=== PATIENT | female | born 1975 | race Caucasian/White ===

== ENCOUNTER 2016-11-09 23:58 | Inpatient (IN) | payer OTHER ==
[~2016-11-09] VITALS: Ht 165.1 cm; Wt 70.0 kg
[2016-11-10] MEDS ORDERED: ACETAMINOPHEN 500 MG TAB PO STA (00:24)
[2016-11-10] MEDS ORDERED: SOD CHLORIDE 0.9% 1,000 ML IV STA (01:13)
[2016-11-10] MEDS ORDERED: morphine 2 MG INJ IV STA (01:13)
[2016-11-10] MEDS ORDERED: ONDANSETRON 4 MG INJ IV STA (01:13)
[2016-11-10] MEDS ORDERED: HALOPERIDOL 5 MG INJ IM ONE (01:30)
[2016-11-10 01:48] LABS: ADD SCAN DIFF NO
[2016-11-10 01:49] LABS: BASOPHILS % 0.2 % (0.0-2.0); EOSINOPHILS # 0.1 10^3/ul (0.0-0.5); EOSINOPHILS % 0.4 % (0.0-7.0); HEMATOCRIT 48.7 % (37.0-47.0); HEMOGLOBIN 16.6 g/dl (12.0-16.0); LYMPHOCYTES # 2.1 10^3/ul (0.8-2.9); LYMPHOCYTES % 13.9 % (15.0-51.0); MEAN CORPUSCULAR HEMOGLOBIN 34.1 pg (29.0-33.0); MEAN CORPUSCULAR HGB CONC 34.1 g/dl (32.0-37.0); MEAN PLATELET VOLUME 10.1 fl (7.4-10.4); MONOCYTE # 0.6 10^3/ul (0.3-0.9); MONOCYTES % 3.8 % (0.0-11.0); NEUTROPHIL # 12.4 10^3/ul (1.6-7.5); NEUTROPHILS % 80.9 % (39.0-77.0); PLATELET COUNT 336 10^3/UL (140-415); RED BLOOD COUNT 4.87 10^6/ul (4.20-5.40); RED CELL DISTRIBUTION WIDTH 14.4 % (11.5-14.5); WHITE BLOOD COUNT 15.3 10^3/ul (4.8-10.8)
[2016-11-10 01:51] LABS: ADD UMIC YES; URINE BILIRUBIN (Dip) NEGATIVE (NEGATIVE); URINE BLOOD (Dip) 1+ (NEGATIVE); URINE COLOR YELLOW (YELLOW); URINE GLUCOSE (Dip) NEGATIVE (NEGATIVE); URINE KETONES (Dip) TRACE (NEGATIVE); URINE LEUKOCYTE ESTERASE (Dip) NEGATIVE (NEGATIVE); URINE NITRITE (Dip) NEGATIVE (NEGATIVE); URINE TOTAL PROTEIN (Dip) TRACE (NEGATIVE); URINE UROBILINOGEN (Dip) 1.0 E.U./dL (0.1-1.0)
[2016-11-10 02:05] LABS: ALBUMIN 4.1 g/dl (3.3-4.9)
[2016-11-10 02:06] LABS: POTASSIUM 4.1 mmol/L (3.5-5.1)
[2016-11-10 02:08] LABS: ALBUMIN/GLOBULIN RATIO 1.32; BILIRUBIN,INDIRECT 0.3 mg/dl (0-1.1); BILIRUBIN,TOTAL 0.3 mg/dl (0.2-1.3); CREATININE 0.71 mg/dl (0.44-1.00); TOTAL PROTEIN 7.2 g/dl (6.1-8.1)
[2016-11-10 02:09] LABS: CALCIUM 9.5 mg/dl (8.4-10.2)
[2016-11-10 02:12] LABS: BACTERIA,URINE MODERATE; SQUAMOUS EPITHELIAL CELL,UR FEW; URINE RBCS 0-2 /HPF (0)
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
[2016-11-10] MEDS ORDERED: morphine 2 MG INJ IV ONE (02:30)
[2016-11-10] MEDS ORDERED: LIDOCAINE 1% (MDV) 20 ML INJ ONE (04:21)
[2016-11-10] MEDS ORDERED: morphine 4 MG/ML VIAL IV STA ×2 (04:28→04:56)
[2016-11-10 04:40] VITALS: TEMP 97.7
[2016-11-10] MEDS ORDERED: DIPHTH/TET/ACEL PERTUSS (ADULT) 0.5 ML VIAL IM* ONE (05:00)
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
[2016-11-10] MEDS ORDERED: ACETAMINOPHEN 325 MG TAB PO PRN ×2 (06:30→09:30)
[2016-11-10] MEDS ORDERED: ONDANSETRON 4 MG INJ IV PRN ×2 (06:30→09:30)
[2016-11-10 08:30] VITALS: BP 141/84; PULSE 69; RESP 16
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
[2016-11-10] MEDS ORDERED: LORAZEPAM 2 MG INJ IV PRN ×2 (09:30)
[2016-11-10] MEDS ORDERED: NACL 0.9% 3 ML SYG IV SCH (09:30)
[2016-11-10] MEDS ORDERED: OXYCODONE/ACETAMINOPHEN (5/325) TAB PO PRN (09:30)
[2016-11-10] MEDS ORDERED: ALBUTEROL/IPRATROPIUM (NEB) 3 ML AMP HHN PRN (09:30)
[2016-11-10] MEDS ORDERED: MULTIVITAMINS 10 ML, THIAMINE 100 MG, FOLIC ACID 1 MG in SOD CHLORIDE 0.9% 1,000 ML IVPB SCH (11:00)
[2016-11-10 11:13] LABS: MAGNESIUM 1.6 mg/dl (1.7-2.5)
[2016-11-10 11:18] VITALS: Ht 165.1 cm; Wt 70.0 kg
[2016-11-10 12:03] LABS: INR 1.05; PROTIME 13.7 Sec (12.2-14.2); PT RATIO 1.1
[2016-11-10 12:25] LABS: THYROID STIMULATING HORMONE 1.99 MIU/L (0.465-4.680)
[2016-11-10] MEDS: IBUPROFEN 800 MG TAB PO SCH ×3 (12:52→20:21)
[2016-11-10] MEDS: THIAMINE 100 MG TAB PO SCH (12:52)
[2016-11-10] MEDS: LIDOCAINE 5% PATCH TD SCH (12:52)
[2016-11-10] MEDS: CHLORDIAZEPOXIDE 25 MG CAP PO SCH ×2 (12:52→20:21)
[2016-11-10] MEDS: ALBUTEROL 18 GM INHALER INH SCH ×2 (12:53→21:45)
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
[2016-11-10] MEDS: morphine 4 MG/ML VIAL IV PRN (16:28)
[2016-11-10] MEDS: OXYCODONE/ACETAMINOPHEN (5/325) TAB PO PRN (18:27)
[2016-11-10 19:42] VITALS: BP 132/73; RESP 18
[2016-11-11] MEDS: morphine 4 MG/ML VIAL IV PRN (05:23)
[2016-11-11] MEDS: ALBUTEROL 18 GM INHALER INH SCH ×3 (05:23→21:15)
[2016-11-11 06:42] LABS: ADD SCAN DIFF NO
[2016-11-11 06:47] LABS: BASOPHILS % 0.2 % (0.0-2.0); EOSINOPHILS # 0.1 10^3/ul (0.0-0.5); EOSINOPHILS % 1.2 % (0.0-7.0); HEMATOCRIT 42.1 % (37.0-47.0); HEMOGLOBIN 14.2 g/dl (12.0-16.0); LYMPHOCYTES # 2.2 10^3/ul (0.8-2.9); LYMPHOCYTES % 21.1 % (15.0-51.0); MEAN CORPUSCULAR HGB CONC 33.7 g/dl (32.0-37.0); MEAN CORPUSCULAR VOLUME 100.7 fl (82.0-101.0); MEAN PLATELET VOLUME 10.7 fl (7.4-10.4); MONOCYTE # 0.6 10^3/ul (0.3-0.9); MONOCYTES % 5.9 % (0.0-11.0); NEUTROPHIL # 7.5 10^3/ul (1.6-7.5); NEUTROPHILS % 71.2 % (39.0-77.0); PLATELET COUNT 243 10^3/UL (140-415); RED BLOOD COUNT 4.18 10^6/ul (4.20-5.40); RED CELL DISTRIBUTION WIDTH 14.6 % (11.5-14.5); WHITE BLOOD COUNT 10.5 10^3/ul (4.8-10.8)
[2016-11-11 07:04] LABS: ALBUMIN 2.8 g/dl (3.3-4.9)
[2016-11-11 07:05] LABS: POTASSIUM 3.1 mmol/L (3.5-5.1)
[2016-11-11 07:07] LABS: BILIRUBIN,INDIRECT 0.6 mg/dl (0-1.1); BILIRUBIN,TOTAL 0.6 mg/dl (0.2-1.3); CREATININE 0.59 mg/dl (0.44-1.00)
[2016-11-11 07:08] LABS: ALBUMIN/GLOBULIN RATIO 1.03; CALCIUM 8.4 mg/dl (8.4-10.2); MAGNESIUM 1.8 mg/dl (1.7-2.5); PHOSPHORUS 2.8 mg/dl (2.5-4.9); TOTAL PROTEIN 5.5 g/dl (6.1-8.1)
[2016-11-11 07:52] VITALS: BP 137/83; RESP 16
[2016-11-11] MEDS: THIAMINE 100 MG TAB PO SCH (08:43)
[2016-11-11] MEDS: ENOXAPARIN 40 MG/0.4 ML SYG SC SCH (08:43)
[2016-11-11] MEDS: IBUPROFEN 800 MG TAB PO SCH ×3 (08:43→21:14)
[2016-11-11] MEDS: FAMOTIDINE 20 MG TAB PO SCH (08:43)
[2016-11-11] MEDS: LIDOCAINE 5% PATCH TD SCH ×2 (08:43→09:00)
[2016-11-11] MEDS: CHLORDIAZEPOXIDE 25 MG CAP PO SCH ×3 (09:11→21:14)
[2016-11-11] MEDS: HYDROCODONE/APAP (10/325) TAB PO PRN ×2 (11:56→18:16)
[2016-11-11] MEDS ORDERED: POTASSIUM CHLORIDE (SR) 20 MEQ TAB PO STA (13:14)
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
[2016-11-11 20:26] VITALS: BP 134/78; RESP 18
[2016-11-11] MEDS: OXYCODONE/ACETAMINOPHEN (5/325) TAB PO PRN (22:35)
[2016-11-12] MEDS: ALBUTEROL 18 GM INHALER INH SCH ×3 (06:01→22:13)
[2016-11-12 07:43] VITALS: BP 146/96; RESP 20
[2016-11-12] MEDS: IBUPROFEN 800 MG TAB PO SCH ×3 (07:55→20:16)
[2016-11-12] MEDS: THIAMINE 100 MG TAB PO SCH (08:29)
[2016-11-12] MEDS: LIDOCAINE 5% PATCH TD SCH (08:29)
[2016-11-12] MEDS: CHLORDIAZEPOXIDE 25 MG CAP PO SCH ×3 (08:29→20:16)
[2016-11-12] MEDS: ENOXAPARIN 40 MG/0.4 ML SYG SC SCH (08:29)
[2016-11-12] MEDS: morphine 4 MG/ML VIAL IV PRN ×2 (08:47→18:45)
[2016-11-12] MEDS: FAMOTIDINE 20 MG TAB PO SCH (09:00)
[2016-11-12] MEDS: OXYCODONE/ACETAMINOPHEN (5/325) TAB PO PRN ×2 (11:54→22:13)
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
[2016-11-12 20:12] VITALS: BP 148/80; RESP 18
[2016-11-13] MEDS: morphine 4 MG/ML VIAL IV PRN (00:11)
[2016-11-13] MEDS: ALBUTEROL 18 GM INHALER INH SCH ×2 (06:08→14:00)
[2016-11-13] MEDS: OXYCODONE/ACETAMINOPHEN (5/325) TAB PO PRN ×2 (06:48→14:59)
[2016-11-13] MEDS: ENOXAPARIN 40 MG/0.4 ML SYG SC SCH (08:06)
[2016-11-13] MEDS: THIAMINE 100 MG TAB PO SCH (08:06)
[2016-11-13] MEDS: FAMOTIDINE 20 MG TAB PO SCH (08:06)
[2016-11-13] MEDS: CHLORDIAZEPOXIDE 25 MG CAP PO SCH ×2 (08:06→13:00)
[2016-11-13] MEDS: LIDOCAINE 5% PATCH TD SCH (08:07)
[2016-11-13] MEDS: IBUPROFEN 800 MG TAB PO SCH ×2 (08:08→13:00)
[2016-11-13 08:20] VITALS: BP 146/85; RESP 20
[2016-11-13] MEDS ORDERED: HYDR-906 PO (14:29)
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
== END 2016-11-13 16:04 | disposition home or self-care (01) | DRG 184 ==
LOC: E/R 23:58 → PP2 11-10 06:16
PROVIDERS: ADMIT Internal Medicine; ATTEND Internal Medicine
DX: S22.42XA Multiple fractures of ribs, left side, initial encounter for closed fracture (principal); R65.10 Systemic inflammatory response syndrome (SIRS) of non-infectious origin without acute organ dysfunction; X95.8XXA Assault by other firearm discharge, initial encounter; R74.0 Nonspecific elevation of levels of transaminase and lactic acid dehydrogenase [LDH]; M54.89 Other dorsalgia; F41.9 Anxiety disorder, unspecified; F10.129 Alcohol abuse with intoxication, unspecified; F32.9 Major depressive disorder, single episode, unspecified; F17.200 Nicotine dependence, unspecified, uncomplicated; Y90.5 Blood alcohol level of 100-119 mg/100 ml; Y92.9 Unspecified place or not applicable; Z59.0 Homelessness
CPT/HCPCS: 36415; 74176; 80053; 80306; 81001; 81003; 83036; 83690; 83735; 84100; 84443; 84703; 85025; 85610; 90471; 90715; 96372; 96374; 96375; 96376; J1630; J1650; J2270; J2405; J3411; J7030

== ENCOUNTER 2016-11-13 16:32 | Emergency (ER) | payer SELFPAY ==
[~2016-11-13] VITALS: Ht 165.1 cm; Wt 84.0 kg
[~2016-11-13 16:32] MED LIST: HYDR-906 PO
[2016-11-13 16:33] VITALS: Ht 165.1 cm; Wt 84.0 kg
== END 2016-11-13 20:05 | disposition left against medical advice (07) ==
LOC: E/R 16:32
DX: Z53.21 Procedure and treatment not carried out due to patient leaving prior to being seen by health care provider (principal)

== ENCOUNTER 2016-11-17 21:30 | Inpatient (IN) | payer OTHER ==
[~2016-11-17] VITALS: Ht 162.6 cm; Wt 74.0 kg
[2016-11-17] MEDS ORDERED: morphine 4 MG/ML VIAL IV STA (22:23)
[2016-11-17] MEDS ORDERED: ONDANSETRON 4 MG INJ IV STA (22:23)
[2016-11-17] MEDS ORDERED: SOD CHLORIDE 0.9% 1,000 ML IV STA (22:23)
--- NOTE | 2016-11-17 23:33 | RADRPT ---
PROCEDURE: CT Brain without contrast. CLINICAL INDICATION: Headache. Trauma. TECHNIQUE: A multiplanar CT of the brain was performed on a CT scanner utilizing axial imaging fro m the skull base through the vertex without IV contrast. The CTDIvol is 44.63 mGy and the DLP is 63 0.20 mGycm. One or more of the following dose reduction techniques were utilized: Automated exposu re control, adjustment of the mA and/or kV according to patient size, use of iterative reconstructio n technique. COMPARISON: None FINDINGS: Left frontoparietal high density extra-axial collection measuring approximately 8 cm in AP dimension along the left frontoparietal convexity and approximately 7 mm in greatest thickness compatible wit h acute subdural hematoma. There is minimal effacement of the sulci and gyri of the left frontal lo be. No underlying parenchymal contusion or calvarial fracture. The brain parenchyma is otherwise normal attenuation morphology with preservation of nicole white diff erentiation and age appropriate size of the ventricles and subarachnoid spaces. The basal cisterns, posterior fossa contents, brainstem, craniocervical junction, orbits, pituitary axis, paranasal sinuses, mastoid air cells, and calvarium are unremarkable. IMPRESSION: 1. Left frontoparietal acute subdural hematoma measuring 8 cm in length and 7 mm in greatest thickn ess with minimal effacement of the left frontal sulci and gyri without mass effect or evidence of pa renchymal contusion. 2. No evidence of calvarial fracture. 3. No other acute intra cranial abnormality. 4. Results were discussed with Brady Cast 11/17/2016 11:30:44 PM . RPTAT:AAJJ Physician Susie Date Time Electronically viewed and signed by Physician Susie on 11/17/2016 23:32 RACHELLE/
[2016-11-18] VITALS (25 sets, daily range): BP systolic 116–153; BP diastolic 74–96; PULSE 40–82; RESP 15–22; TEMP 98.1; Ht 162.6 cm; Wt 74.0 kg
--- NOTE | 2016-11-18 00:13 | RADRPT ---
PROCEDURE: Portable chest x-ray. CLINICAL INDICATION: Chest pain. TECHNIQUE: Portable AP view of the chest. COMPARISON: None. FINDINGS: There are low lung volumes and mild bibasilar atelectasis. No pulmonary edema or conolidation is id entified. The cardiac silhouette is magnified. No pleural effusion is seen. There is no pneumotho rax. IMPRESSION: 1. No evidence of acute cardiopulmonary disease. RPTAT: HTAR .Dirk Gan MD, MD Date Time Electronically viewed and signed by .Dirk Gan MD, MD on 11/18/2016 00:13 .R/
[2016-11-18 00:15] LABS: ADD SCAN DIFF NO
[2016-11-18 00:20] LABS: BASOPHILS % 0.3 % (0.0-2.0); EOSINOPHILS # 0.1 10^3/ul (0.0-0.5); EOSINOPHILS % 1.1 % (0.0-7.0); HEMATOCRIT 43.9 % (37.0-47.0); LYMPHOCYTES # 1.7 10^3/ul (0.8-2.9); LYMPHOCYTES % 14.1 % (15.0-51.0); MEAN CORPUSCULAR HEMOGLOBIN 34.1 pg (29.0-33.0); MEAN CORPUSCULAR HGB CONC 34.2 g/dl (32.0-37.0); MEAN CORPUSCULAR VOLUME 99.8 fl (82.0-101.0); MEAN PLATELET VOLUME 10.1 fl (7.4-10.4); MONOCYTE # 1.1 10^3/ul (0.3-0.9); MONOCYTES % 8.7 % (0.0-11.0); NEUTROPHIL # 9.2 10^3/ul (1.6-7.5); NEUTROPHILS % 75.1 % (39.0-77.0); PLATELET COUNT 344 10^3/UL (140-415); RED CELL DISTRIBUTION WIDTH 14.2 % (11.5-14.5); WHITE BLOOD COUNT 12.3 10^3/ul (4.8-10.8)
[2016-11-18] MEDS ORDERED: LORAZEPAM 2 MG INJ IV ONE (00:30)
[2016-11-18 00:40] LABS: ALANINE AMINOTRANSFERASE 49 IU/L (13-69); ALBUMIN 3.8 g/dl (3.3-4.9); ALBUMIN/GLOBULIN RATIO 1.15; ALKALINE PHOSPHATASE 88 IU/L (42-121); ANION GAP 9 (8-16); ASPARTATE AMINO TRANSFERASE 39 IU/L (15-46); BILIRUBIN,INDIRECT 0.2 mg/dl (0-1.1); BILIRUBIN,TOTAL 0.2 mg/dl (0.2-1.3); BLOOD UREA NITROGEN 11 mg/dl (7-20); CALCIUM 9.5 mg/dl (8.4-10.2); CARBON DIOXIDE 29 mmol/L (21-31); CHLORIDE 103 mmol/L (97-110); CREATININE 0.69 mg/dl (0.44-1.00); GLUCOSE 120 mg/dl (70-220); POTASSIUM 3.8 mmol/L (3.5-5.1); SODIUM 137 mmol/L (135-144); TOTAL PROTEIN 7.1 g/dl (6.1-8.1)
[2016-11-18 00:41] LABS: INR 0.98; PARTIAL THROMBOPLASTIN TIME 27.9 Sec (25.0-35.0)
[2016-11-18 00:57] LABS: B-TYPE NATRIURETIC PEPTIDE 32 PG/ML (0-125)
[2016-11-18 00:59] LABS: TROPONIN-I < 0.012 ng/ml (0.00-0.12)
[2016-11-18] MEDS ORDERED: ALBUTEROL/IPRATROPIUM (NEB) 3 ML AMP NEB PRN (01:00)
[2016-11-18] MEDS ORDERED: ONDANSETRON 4 MG INJ IV PRN (01:00)
[2016-11-18] MEDS ORDERED: ACETAMINOPHEN 650MG/20.3ML CUP PO PRN (01:00)
[2016-11-18] MEDS ORDERED: hydrALAzine 20 MG INJ IV PRN (01:00)
[2016-11-18] MEDS: morphine 2 MG INJ IV PRN ×2 (01:48→18:42)
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
[2016-11-18] MEDS: OXYCODONE/ACETAMINOPHEN (5/325) TAB PO PRN ×3 (06:06→21:46)
[2016-11-18] MEDS: PANTOPRAZOLE 40 MG INJ IV SCH (06:06)
[2016-11-18 06:23] LABS: ADD SCAN DIFF NO
[2016-11-18 06:29] LABS: BASOPHILS % 0.3 % (0.0-2.0); EOSINOPHILS # 0.3 10^3/ul (0.0-0.5); EOSINOPHILS % 3.2 % (0.0-7.0); HEMATOCRIT 44.7 % (37.0-47.0); HEMOGLOBIN 14.9 g/dl (12.0-16.0); LYMPHOCYTES # 2.4 10^3/ul (0.8-2.9); LYMPHOCYTES % 23.6 % (15.0-51.0); MEAN CORPUSCULAR HEMOGLOBIN 33.3 pg (29.0-33.0); MEAN CORPUSCULAR HGB CONC 33.3 g/dl (32.0-37.0); MEAN CORPUSCULAR VOLUME 99.8 fl (82.0-101.0); MEAN PLATELET VOLUME 9.8 fl (7.4-10.4); MONOCYTE # 1.1 10^3/ul (0.3-0.9); MONOCYTES % 10.9 % (0.0-11.0); NEUTROPHIL # 6.3 10^3/ul (1.6-7.5); NEUTROPHILS % 61.5 % (39.0-77.0); PLATELET COUNT 345 10^3/UL (140-415); RED BLOOD COUNT 4.48 10^6/ul (4.20-5.40); RED CELL DISTRIBUTION WIDTH 14.4 % (11.5-14.5); WHITE BLOOD COUNT 10.2 10^3/ul (4.8-10.8)
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
[2016-11-18 07:09] LABS: ALBUMIN 3.4 g/dl (3.3-4.9); ALBUMIN/GLOBULIN RATIO 1.03; BILIRUBIN,INDIRECT 0.3 mg/dl (0-1.1); BILIRUBIN,TOTAL 0.3 mg/dl (0.2-1.3); CALCIUM 9.4 mg/dl (8.4-10.2); CREATININE 0.66 mg/dl (0.44-1.00); POTASSIUM 3.7 mmol/L (3.5-5.1); TOTAL PROTEIN 6.7 g/dl (6.1-8.1)
[2016-11-18] MEDS: ACETAMINOPHEN 325 MG TAB PO PRN ×2 (09:05→17:41)
[2016-11-18 10:22] LABS: CHOL/HDL RATIO 5.3 RATIO
--- NOTE | 2016-11-18 17:38 | RADRPT ---
PROCEDURE: CT Brain without contrast. CLINICAL INDICATION: f/u acute subdural hematoma TECHNIQUE: A CT of the brain was performed on a high-resolution CT scanner utilizing a low dose te chnique with axial imaging from the skull base through the vertex without IV contrast. Multiplanar reformatted images were made. Images were reviewed on a PACS workstation. The CTDIvol is 44 point a mGy and the DLP is 630.2 mGycm. One or more of the following dose reduction techniques were used: - Automated exposure control. - Adjustment of the mA and/or kV according to patient size. Use of iterative reconstruction technique. COMPARISON: None FINDINGS: The acute subdural hematoma previous identified along the inner table at the convexity of the left f rontal bone is unchanged. The brain parenchyma is normal. The skull is intact. The visible portion s of the paranasal sinuses and mastoid air cells are clear bilaterally. The globes and extraocular muscles are normal as visualized. IMPRESSION: 1. There has been no interval change in the size of the acute left frontal subdural hematoma when c ompared to the prior CT scan of the brain dated 11/17/2016. The subdural hematoma measures up to 8. 7 mm in maximal with in the coronal plane. Series 601; image 24. Compared to series 6 L1; image 28 on the prior study. RPTAT:AAJJ Physician Elias Date Time Electronically viewed and signed by Michael Ortiz Physician on 11/18/2016 17:38 MANJEET/
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
[2016-11-19] VITALS (10 sets, daily range): BP systolic 123–170; BP diastolic 75–87; PULSE 45–78; RESP 17–19
[2016-11-19] MEDS: morphine 2 MG INJ IV PRN ×2 (03:06→16:12)
[2016-11-19] MEDS: PANTOPRAZOLE 40 MG INJ IV SCH (06:23)
[2016-11-19] MEDS: OXYCODONE/ACETAMINOPHEN (5/325) TAB PO PRN ×2 (06:24→12:58)
[2016-11-19] MEDS: ACETAMINOPHEN 325 MG TAB PO PRN ×2 (09:22→16:14)
[2016-11-19 11:15] LABS: ADD SCAN DIFF NO
[2016-11-19 11:45] LABS: CALCIUM 9.2 mg/dl (8.4-10.2); CREATININE 0.5 mg/dl (0.44-1.00); POTASSIUM 4.8 mmol/L (3.5-5.1)
[2016-11-19 12:47] LABS: BASOPHILS % 0.3 % (0.0-2.0); EOSINOPHILS # 0.3 10^3/ul (0.0-0.5); EOSINOPHILS % 2.4 % (0.0-7.0); HEMATOCRIT 44.7 % (37.0-47.0); LYMPHOCYTES # 2.3 10^3/ul (0.8-2.9); LYMPHOCYTES % 22.3 % (15.0-51.0); MEAN CORPUSCULAR HEMOGLOBIN 33.7 pg (29.0-33.0); MEAN CORPUSCULAR HGB CONC 33.6 g/dl (32.0-37.0); MEAN CORPUSCULAR VOLUME 100.4 fl (82.0-101.0); MEAN PLATELET VOLUME 10.1 fl (7.4-10.4); MONOCYTE # 0.8 10^3/ul (0.3-0.9); MONOCYTES % 7.4 % (0.0-11.0); NEUTROPHILS % 67.1 % (39.0-77.0); PLATELET COUNT 397 10^3/UL (140-415); RED BLOOD COUNT 4.45 10^6/ul (4.20-5.40); RED CELL DISTRIBUTION WIDTH 14.1 % (11.5-14.5); WHITE BLOOD COUNT 10.4 10^3/ul (4.8-10.8)
--- NOTE | 2016-11-19 14:57 | PDOCDIS ---
Discharge Instructions CONDITION Patient Condition: Stable HOME CARE INSTRUCTIONS: Special Diet: Regular ACTIVITY: Activity Restrictions: Slowly Increase Activity FOLLOW UP/APPOINTMENTS Appointments Please take your medications, and see your doctor in the clinic in 1 week. SERGEY PATRICK November 19, 2016 14:57
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
== END 2016-11-19 16:45 | disposition home or self-care (01) | DRG 86 ==
LOC: E/R 21:30 → EDBD 21:30 → ICU 11-18 00:59 → MERGE 11-18 00:59 → MS4 11-18 22:36
PROVIDERS: ADMIT Internal Medicine; ATTEND Hospitalist
DX: S06.5X0A Traumatic subdural hemorrhage without loss of consciousness, initial encounter (principal); S22.39XA Fracture of one rib, unspecified side, initial encounter for closed fracture; Y09 Assault by unspecified means; D72.829 Elevated white blood cell count, unspecified; H53.8 Other visual disturbances
CPT/HCPCS: 36415; 70450; 71010; 80048; 80053; 80061; 83036; 83880; 84484; 85025; 85610; 85730; 87081; 93005; 96374; 96375; 96376; C9113; J2060; J2270; J2405; J7030